=== PATIENT | female | born 1960 ===

== ENCOUNTER 2020-12-29 10:04 | Outpatient (CLI) | payer OTHER ==
[~2020-12-29 10:04] MED LIST: NABUMETONE500 MG PO; PERCOCET 5/3251 TAB PO
== END 2020-12-29 10:07 | disposition home or self-care (01) ==
LOC: SONOGRAMA 10:04
PROVIDERS: ATTEND Pathology Anatomic Pathology & Clinical Pathology
DX: E04.1 Nontoxic single thyroid nodule (principal)